=== PATIENT | female | born 1965 | race African-American/Black ===

== ENCOUNTER 2021-03-29 10:28 | Inpatient (IN) | payer OTHER ==
[~2021-03-29] VITALS: Ht 167.6 cm; Wt 86.4 kg
[~2021-03-29 10:28] MED LIST: NOCURR
[2021-03-29] MEDS ORDERED: NOREPINEPHRINE BITARTRATE 8 MG in DEXTROSE 5%-WATER 242 ML IV PRN (10:45)
[2021-03-29] MEDS ORDERED: SODIUM CHLORIDE 0.9% 1,000 ML IV ONE ×2 (10:45)
[2021-03-29 11:10] LABS: BASOPHILS % (AUTO) 0.4 % (0.0-2.0); EOSINOPHILS % (AUTO) 0.4 % (1.0-6.0); HEMATOCRIT 25.1 % (36-46); HEMOGLOBIN 7.3 g/dL (12.0-16.0); LYMPHOCYTES # (AUTO) 1.3 K/uL (1.0-4.8); LYMPHOCYTES % (AUTO) 50.1 % (22.0-44.0); MEAN CORPUSCULAR HEMOGLOBIN 26.7 pg (26.0-34.0); MEAN CORPUSCULAR HGB CONC 29.2 G/dL (31.0-37.0); MEAN CORPUSCULAR VOLUME 91 fL (80-100); MONOCYTES # (AUTO) 0.1 K/uL (0.1-1.0); MONOCYTES % (AUTO) 2.6 % (2.0-9.0); NEUTROPHILS # (AUTO) 1.2 K/uL (1.8-7.7); NEUTROPHILS % (AUTO) 46.5 % (40.0-70.0); PLATELET COUNT (AUTO) 128 K/uL (150-450); RED BLOOD CELL COUNT(AUTO) 2.75 MIL/uL (4.00-5.20); RED CELL DISTRIBUTION WIDTH 27.3 % (11.5-14.5)
[2021-03-29 11:15] LABS: INR 1.2 (0.9-1.1); PROTHROMBIN TIME 12.3 SEC (9.4-11.6)
[2021-03-29 11:18] LABS: CALCIUM, TOTAL 7.5 mg/dL (8.8-10.5); CHLORIDE 99 mmol/L (98-107); GLUCOSE,RANDOM 95 mg/dL (70-110); POTASSIUM 4.9 mmol/L (3.5-5.1); SODIUM SERUM 151 mmol/L (136-145); UREA NITROGEN, BLOOD 6 mg/dL (7-18)
[2021-03-29 11:19] LABS: ALANINE AMINOTRANSFERASE 213 U/L (12-78); ALBUMIN 1.8 g/dL (3.4-5.0); ALKALINE PHOSPHATASE 49 U/L (46-116); ASPARTATE AMINOTRANSFERASE 266 U/L (15-37); BILIRUBIN,TOTAL 0.5 mg/dL (0.1-1.0); CREATINE KINASE, TOTAL ONLY 92 U/L (26-192); LIPASE 40 U/L (73-393); TOTAL PROTEIN, SERUM 3.9 g/dL (6.4-8.2)
[2021-03-29 11:21] LABS: ANION GAP 7 mmol/L (8-16); CARBON DIOXIDE 45 mmol/L (22-29)
[2021-03-29] MEDS ORDERED: SODIUM CHLORIDE 0.9% 100 ML ONE (11:21)
[2021-03-29] MEDS ORDERED: IOHEXOL 350 MG/ML 100 ML VIAL ONE (11:22)
[2021-03-29 11:30] LABS: B-TYPE NATRIURETIC PEPTIDE 50 pg/mL (0-100)
[2021-03-29 11:31] LABS: CREATININE 0.21 mg/dL (0.60-1.30); GLOMERULAR FILTR. RATE CALC > 60 mL/min (>60)
[2021-03-29] MEDS ORDERED: PANTOPRAZOLE SODIUM 80 MG in SODIUM CHLORIDE 0.9% 100 ML IV SCH (12:00)
[2021-03-29 12:06] LABS: SOURCE, BLOOD GAS ARTERIAL; TEMPERATURE, FAHRENHEIT, BG 98.6 FAHREN (96.0-98.6)
[2021-03-29 12:09] LABS: ABG METHEMOGLOBIN 0.3 % (0.0-1.5)
[2021-03-29] MEDS ORDERED: DEXTROSE 5%-WATER 1,000 ML IV ONE (12:15)
[2021-03-29 12:24] LABS: ABG OXYGEN CONTENT 9.8 mL/dL (15.0-23.0); ABG OXYHEMOGLOBIN 79.5 % (94.0-100.0); ABG TOTAL HEMOGLOBIN 8.7 G/dL (12.0-18.0); PO2, ARTERIAL BG 66.6 mmHg (84.0-92.0)
[2021-03-29 12:25] LABS: ABG OXYGEN SATURATION 80.5 % (95.0-98.0); ABG PH 6.939 (7.35-7.450); SITE, BLOOD GAS ARTERIAL LINE
[2021-03-29 12:26] LABS: O2 DEVICE,BLOOD GAS VENTILATOR (ROOM AIR); PEEP,BG 7 cm H2O; VENT MODE, BG Press. Control Vent (ROOM AIR); VT, ABG 120 ml
[2021-03-29] MEDS ORDERED: PIPERACILLIN/TAZO 3.375 GM/D5W 50 ML IV SCH (12:30)
[2021-03-29] MEDS ORDERED: ACETAMINOPHEN 325 MG TABLET PO PRN (12:30)
[2021-03-29] MEDS ORDERED: MORPHINE SULFATE 2 MG/ML SYRINGE IVP PRN (12:30)
[2021-03-29] MEDS ORDERED: BISACODYL 10 MG RECTAL RECTAL SUPPOSITORY PR PRN (12:30)
[2021-03-29 12:39] LABS: COVID AG,FIA SOURCE NASOPHARYNGEAL
[2021-03-29] MEDS ORDERED: PHENYLEPHRINE 200 MG/D5%-WATER 250 ML IV PRN (12:45)
[2021-03-29 12:55] LABS: OCCULT BLOOD,GASTRIC FLUID POSITIVE (NEGATIVE)
[2021-03-29 13:00] VITALS: BP 102/53
[2021-03-29] MEDS ORDERED: VANCOMYCIN HCL 1.5 GM in DEXTROSE 5%-WATER 250 ML IV ONE (13:00)
[2021-03-29] MEDS ORDERED: CefTRIAXone SODIUM 2 GM in DEXTROSE 5%-WATER 50 ML IV SCH (13:00)
[2021-03-29] MEDS ORDERED: DOPamine 400MG/D5W[STANDARD] 250 ML IV ONE (13:44)
[2021-03-29] MEDS ORDERED: DOXYCYCLINE HYCLATE 100 MG in DEXTROSE 5%-WATER 100 ML IV SCH (14:00)
[2021-03-29] MEDS ORDERED: EPINEPHrine 1:10,000 [1 MG/10 ML] SYRINGE ONE (14:05)
[2021-03-29] MEDS ORDERED: EPINEPHrine 1:10,000 [1 MG/10 ML] SYRINGE IVP ONE ×2 (16:56→16:59)
[2021-03-29] MEDS ORDERED: 0.9% SODIUM CHLORIDE 10 ML SYRINGE IVP ONE (16:56)
[2021-03-29] MEDS ORDERED: 0.9% SODIUM CHLORIDE 1,000 ML BAG IV ONE (16:56)
[2021-03-29] MEDS ORDERED: SODIUM BICARBONATE [ADULT] 8.4% 50 MEQ/50 ML SYRINGE IVP ONE ×2 (16:56→16:59)
[2021-03-30] MEDS ORDERED: VANCOMYCIN HCL 1 GM/D5% WATER 200 ML IV SCH
[2021-03-30] MEDS ORDERED: PANTOPRAZOLE SODIUM 40 MG/VIAL IVP SCH (09:00)
== END 2021-03-29 17:00 | DRG 133 ==
LOC: EMS 10:28 → ICU 12:39
PROVIDERS: ADMIT Internal Medicine; ATTEND Internal Medicine
PROC: 5A1935Z Respiratory Ventilation, Less than 24 Consecutive Hours (ICD-10-PCS; principal; 2021-03-29)
PROC: 5A12012 Performance of Cardiac Output, Single, Manual (ICD-10-PCS; 2021-03-29)
PROC: 0BH17EZ Insertion of Endotracheal Airway into Trachea, Via Natural or Artificial Opening (ICD-10-PCS; 2021-03-29)
PROC: 06HY33Z Insertion of Infusion Device into Lower Vein, Percutaneous Approach (ICD-10-PCS; 2021-03-29)
PROC: 04HY32Z Insertion of Monitoring Device into Lower Artery, Percutaneous Approach (ICD-10-PCS; 2021-03-29)
PROC: 4A133B1 Monitoring of Arterial Pressure, Peripheral, Percutaneous Approach (ICD-10-PCS; 2021-03-29)
PROC: 4A133J1 Monitoring of Arterial Pulse, Peripheral, Percutaneous Approach (ICD-10-PCS; 2021-03-29)
PROC: B44FZZZ Ultrasonography of Right Lower Extremity Arteries (ICD-10-PCS; 2021-03-29)
PROC: 06HY33Z Insertion of Infusion Device into Lower Vein, Percutaneous Approach (ICD-10-PCS; 2021-03-29)
PROC: B54DZZA Ultrasonography of Bilateral Lower Extremity Veins, Guidance (ICD-10-PCS; 2021-03-29)
DX: J96.01 Acute respiratory failure with hypoxia (principal); I46.9 Cardiac arrest, cause unspecified; Z99.11 Dependence on respirator [ventilator] status; K92.0 Hematemesis; D61.818 Other pancytopenia; R57.1 Hypovolemic shock; R57.8 Other shock; C78.00 Secondary malignant neoplasm of unspecified lung; C50.911 Malignant neoplasm of unspecified site of right female breast; E87.0 Hyperosmolality and hypernatremia; W18.39XA Other fall on same level, initial encounter; E86.1 Hypovolemia; Z20.822 Contact with and (suspected) exposure to COVID-19; D63.8 Anemia in other chronic diseases classified elsewhere; E66.9 Obesity, unspecified; Z90.11 Acquired absence of right breast and nipple; R62.7 Adult failure to thrive; R74.01 Elevation of levels of liver transaminase levels; Z68.30 Body mass index [BMI] 30.0-30.9, adult; Z98.891 History of uterine scar from previous surgery; Y93.89 Activity, other specified; Y92.098 Other place in other non-institutional residence as the place of occurrence of the external cause; Y99.8 Other external cause status; J96.02 Acute respiratory failure with hypercapnia
CPT/HCPCS: 36600; 51702; 71045; 80053; 82271; 82550; 82805; 82948; 83690; 83735; 83880; 84484; 85025; 85610; 87040; 87077; 87186; 87205; 92950; 93005; 94002; 99291; A9575; C9113; G0378; J0171; J0696; J1265; J2370; J2543; J3370; J3490; J7030; J7050; J7060; 36415-L1; 36415-TC; U0003